=== PATIENT | female | born 1990 | race Asian ===

== ENCOUNTER 2019-01-14 20:05 | Emergency (ER) | payer MEDICAID, OTHER ==
[~2019-01-14] VITALS: Ht 167.6 cm; Wt 58.5 kg
[2019-01-14 20:27] VITALS: BP 135/79
[2019-01-14 21:11] LABS: Urine Bacteria FEW /hpf (None Seen); Urine Blood 2+ /uL (Negative); Urine Mucus FEW (None Seen); Urine Specific Gravity 1.016 (1.001-1.035); Urine WBC 9 /hpf (0 - 5)
[2019-01-14 21:35] LABS: Basophils # (auto) 0 uL; Basophils % (auto) 0.3 % (0.0-2.0); Eosinophils # (auto) 0.2 uL; Eosinophils % (auto) 1.3 % (0.0-7.0); Hemoglobin 13.9 g/dL (12.2-16.2); Lymphocytes # (auto) 4.2 uL; Lymphocytes % (auto) 32.2 % (10.0-50.0); Mean Corpuscular Hemoglobin 29.9 pg (28.0-32.0); Mean Corpuscular Volume 87.8 fL (80.0-100.0); Monocytes % (auto) 7.3 % (0.0-12.0); Neutrophils # (auto) 7.6 uL; Neutrophils % (auto) 58.9 % (37.0-80.0); Platelet Count (auto) 293 10^3/uL (140-450); Red Blood Cells 4.67 10^6/uL (4.0-5.20); Red Cell Distribution Width 12.9 % (11.8-14.3)
[2019-01-14 22:43] LABS: INR 0.89 (0.9-1.15); Partial Thromboplastin Time 28.3 sec (23.78-33.04); Prothrombin Time 9.6 sec (9.27-12.13)
== END 2019-01-15 02:51 | disposition left against medical advice (07) ==
LOC: ER 20:09
DX: O20.9 Hemorrhage in early pregnancy, unspecified (principal); Z3A.11 11 weeks gestation of pregnancy; Z53.21 Procedure and treatment not carried out due to patient leaving prior to being seen by health care provider
CPT/HCPCS: 36415; 76801; 81001; 84702; 85025; 85610; 85730

== ENCOUNTER 2019-05-24 20:05 | Emergency (ER) | payer MEDICAID ==
[~2019-05-24] VITALS: Ht 167.6 cm; Wt 64.9 kg
[2019-05-24 20:27] VITALS: BP 125/81
== END 2019-05-25 01:03 | disposition home or self-care (01) ==
LOC: ER 20:10
DX: O99.612 Diseases of the digestive system complicating pregnancy, second trimester (principal); K59.00 Constipation, unspecified; Z3A.28 28 weeks gestation of pregnancy

== ENCOUNTER → 2019-05-24 | Emergency (ER) | payer MEDICAID | END | disposition left against medical advice (07) | LOC: ER 20:07 | DX: K59.00 Constipation, unspecified (principal); Z53.21 Procedure and treatment not carried out due to patient leaving prior to being seen by health care provider ==

== ENCOUNTER 2019-08-08 09:57 | Observation (INO) | payer SELFPAY ==
[2019-08-08] MEDS ORDERED: PREN-96 PO (12:48)
== END 2019-08-08 13:25 | disposition home or self-care (01) | DRG 833 ==
LOC: LDRP 09:57
PROVIDERS: ADMIT Specialist; ATTEND Specialist
DX: O48.0 Post-term pregnancy (principal); Z3A.40 40 weeks gestation of pregnancy
CPT/HCPCS: 59025; 76818; 81002; G0378

== ENCOUNTER 2019-08-10 08:41 | Observation (INO) | payer MEDICAID ==
[~2019-08-10 08:41] MED LIST: PREN-96 PO
== END 2019-08-10 09:45 | disposition home or self-care (01) | DRG 566 ==
LOC: LDRP 08:41
PROVIDERS: ADMIT Specialist; ATTEND Specialist
DX: O48.0 Post-term pregnancy (principal); Z3A.40 40 weeks gestation of pregnancy
CPT/HCPCS: 76818; G0378; 59025; 81002

== ENCOUNTER 2019-08-11 11:20 | Observation (INO) | payer MEDICAID | END 2019-08-11 12:47 | disposition home or self-care (01) | DRG 566 | LOC: LDRP 11:20 | PROVIDERS: ADMIT Obstetrics & Gynecology; ATTEND Obstetrics & Gynecology | DX: O46.93 Antepartum hemorrhage, unspecified, third trimester (principal); O26.893 Other specified pregnancy related conditions, third trimester; O48.0 Post-term pregnancy; R10.30 Lower abdominal pain, unspecified; Z3A.40 40 weeks gestation of pregnancy | CPT/HCPCS: 59025; 81002; G0378 ==

== ENCOUNTER 2019-08-11 23:25 | Inpatient (IN) | payer MEDICAID ==
[~2019-08-11] VITALS: Ht 167.6 cm; Wt 69.4 kg
[2019-08-12] MEDS ORDERED: LIDOCAINE 1% (LOCAL ANESTH.) PF 5ml SDV IJ ONE (01:30)
[2019-08-12] MEDS ORDERED: METHYLERGONOVINE MALEATE 0.2 MG/ML AMP IM PRN (01:30)
[2019-08-12] MEDS: LACTATED RINGER'S 1,000 ML IV SCH ×3 (01:47→13:23)
[2019-08-12] MEDS: BUTORPHANOL TARTRATE 2 MG/1 ML VIAL IV PRN ×2 (01:51→15:02)
[2019-08-12 01:59] LABS: Basophils # (auto) 0.1 uL; Basophils % (auto) 0.4 % (0.0-2.0); Eosinophils # (auto) 0 uL; Hematocrit 41.9 % (36.0-46.0); Hemoglobin 14.3 g/dL (12.2-16.2); Lymphocytes # (auto) 1.6 uL; Lymphocytes % (auto) 10.1 % (10.0-50.0); Mean Corpuscular Hgb Conc. 34.3 g/dL (32.0-36.0); Mean Corpuscular Volume 90.4 fL (80.0-100.0); Monocytes # (auto) 0.4 uL; Monocytes % (auto) 2.6 % (0.0-12.0); Neutrophils # (auto) 13.4 uL; Neutrophils % (auto) 86.9 % (37.0-80.0); Nucleated Red Blood Cells % 0.1 %; Platelet Count (auto) 286 10^3/uL (140-450); Red Blood Cells 4.63 10^6/uL (4.0-5.20); Red Cell Distribution Width 12.3 % (11.8-14.3); White Blood Cell 15.5 10^3/uL (4.4-10.8)
[2019-08-12 02:15] LABS: INR < 0.93 (0.9-1.15); Partial Thromboplastin Time 28.6 sec (23.64-32.05)
[2019-08-12 02:17] LABS: Albumin 2.8 g/dL (3.4-5.0); BUN/Creatinine Ratio 9.3; Calcium 8.8 mg/dL (8.5-10.1); Potassium 3.5 mmol/L (3.5-5.1)
[2019-08-12 02:18] LABS: Alcohol, Urine < 3.0 mg/dL (0-5); Amphetamine Screen, Urine NEGATIVE (NEGATIVE); Barbiturate Scree,Urine NEGATIVE (NEGATIVE); Benzodiazephine Screen, Urine NEGATIVE (NEGATIVE); Cannabinoid Screen, Urine NEGATIVE (NEGATIVE); Cocaine Screen, Urine NEGATIVE (NEGATIVE); Opiate Scree,Urine NEGATIVE (NEGATIVE); Phencyclidine Screen, Urine NEGATIVE (NEGATIVE)
[2019-08-12] MEDS ORDERED: LACT. RINGERS/OXYTOCIN 20UNITS 1,000 ML IV SCH (02:18)
[2019-08-12 02:19] LABS: Bilirubin, Total 0.4 mg/dL (0.2-1.0); Total Protein 7.7 g/dL (6.4-8.2); Urine Bacteria FEW /hpf (None Seen); Urine Blood 3+ /uL (Negative); Urine Mucus FEW (None Seen); Urine Specific Gravity 1.017 (1.001-1.035); Urine WBC 13 /hpf (0 - 5)
[2019-08-12] MEDS ORDERED: LACTATED RINGER'S 1,000 ML IV ONE (02:56)
[2019-08-12] MEDS ORDERED: LACTATED RINGER'S 500 ML IV ONE (02:56)
[2019-08-12] MEDS ORDERED: ePHEDrine SULFATE 50 MG/ML AMP IV ONE (03:00)
[2019-08-12] MEDS ORDERED: LIDOCAINE 2%HCL (LOCAL ANESTH.) INJ 20ML MDV IJ ONE (03:00)
[2019-08-12] MEDS ORDERED: fentaNYL CITRATE 100 MCG/2 ML VL IV ONE (03:00)
[2019-08-12] MEDS ORDERED: LIDOCAINE HCL 2 %PF INJ 10ML AMP IJ ONE (03:00)
[2019-08-12] MEDS ORDERED: NALOXONE HCL 0.4 MG/ML VIAL IV ONE (03:00)
[2019-08-12] MEDS ORDERED: LIDOCAINE W/ EPINEPHRINE 1 % INJ 30ML IJ ONE (03:00)
[2019-08-12] MEDS ORDERED: fentaNYL W ROPIVACAINE 150 ML EPI SCH (03:00)
[2019-08-12] MEDS ORDERED: TERBUTALINE SULFATE 1 MG/ML 1ML VIAL SC ONE ×2 (08:25→08:48)
[2019-08-12] MEDS ORDERED: TERBUTALINE SULFATE 1 MG/ML 1ML VIAL SC PRN (09:00)
[2019-08-12] MEDS ORDERED: LIDOCAINE 2%HCL (LOCAL ANESTH.) INJ 20ML MDV ONE (14:05)
[2019-08-12] MEDS ORDERED: LIDOCAINE 2%HCL (LOCAL ANESTH.) INJ 10ml MDV IJ ONE ×2 (14:15)
[2019-08-12] MEDS ORDERED: CARBOPROST TROMETHAMINE 250 MCG/1ML VIAL IM ONE ×2 (15:30→15:31)
[2019-08-12] MEDS ORDERED: DIPHENOXYLATE W/ATROPINE 2.5 MG TAB PO PRN (15:45)
[2019-08-12] MEDS: ceFAZolin 1GM/50ML 50 ML IV SCH ×2 (16:09→23:45)
[2019-08-12] MEDS: ONDANSETRON HCL 4 MG/2 ML VIAL IV PRN (16:36)
[2019-08-12 17:17] VITALS: BP 128/82
[2019-08-12] MEDS: PHISODERM TOP SOLN 240ML BTL TOP PRN (17:22)
[2019-08-12] MEDS: WITCH HAZEL-GLYCERIN PAD TOP PRN (17:22)
[2019-08-12] MEDS: DERMOPLAST 60ML BOTTLE TOP PRN (17:22)
[2019-08-12 19:00] VITALS: BP 123/67
--- NOTE | 2019-08-12 19:00 | NUR ---
Assumed care of female pt post vaginal delivery at 1448. Pt is awake and alert, States she is having a lot of pain. Pt understands when spoken to but her lithuanian is very limited. Lungs are clear bilat. heart tones wnl abd is soft b/s present fundus is firm just below the umb. lochia is small no clots noted, edema to the perineum noted. No edema to lower extremities noted. Oliver catheter in placed emptied 550 ml's of dark yellow urine noted. IV to left hand noted site is benign IV fluids infusing as ordered. 191 Pt medicated with Motrin PO as ordered. 1920 Sequential stockings placed and explained to pt the benefits of placement, explanation via sister who translated. Pt verbalizes understanding via sister's translation
[2019-08-12] MEDS: IBUPROFEN 600 MG TAB PO PRN (19:15)
--- NOTE | 2019-08-12 20:00 | NUR ---
Assisted pt with putting to breast infant sleeping encouraged mom to try again in an hour infant remains skin to skin with mom call escamilla within reach instructed mom to notify staff if exp any problems or has any concerns via sister who translated. Translation phone in place and pt was asked how her pain was at this time via translation phone, pt responded that her pain was going away and she felt better. No distress noted will continue to monitor
[2019-08-12 23:00] VITALS: BP 104/68
--- NOTE | 2019-08-12 23:00 | NUR ---
Fundus remains firm below the umb. allison care given pagan collection bag emptied, V/S obtained and stable no distress noted will continue to monitor
[2019-08-13 03:00] VITALS: BP 115/65
--- NOTE | 2019-08-13 03:00 | NUR ---
Fundus remains firm below the um. lochia is small no clots noted, edema to labia noted. Chantel care given pagan collection bag emptied 750 of yellow urine. Ice pack placed to perineum will continue to monitor
--- NOTE | 2019-08-13 04:50 | NUR ---
Call received form Dr. Odonnell, update on pt's status given Per Dr. Odonnell pagan catheter may be discontinued by Day shift and if needed may place a 5 pound sand bag to the perineum
--- NOTE | 2019-08-13 05:30 | NUR ---
Infant safety and expected care reviewed and discussed via interpretation phone ( [facility]: [phone]). Pt verbalizes understanding and agrees to take care of infant. All questions and concerns answered at this time.
[2019-08-13 06:30] VITALS: BP 117/70
[2019-08-13] MEDS ORDERED: ceFAZolin 1GM/50ML 50 ML IV SCH (08:00)
--- NOTE | 2019-08-13 08:45 | NUR ---
Teaching: positioning and latch techniques reviewed with patient; Infant latched with nipple shield, infant actively sucking and swallowing, observed by this RN. Reviewed information in [facility] booklet with patient. Discussed benefits of and risks associated with not . Discussed different positions, proper latch, feeding cues, and baby-led . Provided information of medication side effects related to . All questions and concerns addressed at this time.
--- NOTE | 2019-08-13 09:00 | NUR ---
Pagan catheter dc'd Order to discontinue pagan catheter. Pagan dc'd with clean technique following deflation of balloon. Patient tolerated well with no complaints of pain. Pericare done. Clean peripad, tucks, dermoplast and ice pack applied to perineum.
[2019-08-13] MEDS: IBUPROFEN 600 MG TAB PO PRN ×2 (09:22→22:37)
--- NOTE | 2019-08-13 10:30 | NUR ---
Ambulation: Patient OOB with standby assistance by RN. Patient ambulated to bathroom with steady gait. Patient able to void 600ml without difficulty. Pericare teaching provided with returned demonstration by patient. Clean gown provided and bed linen changed. Patient ambulated back to bed with steady gait and no distress noted.
[2019-08-13 10:48] VITALS: BP 104/55
[2019-08-13 15:30] VITALS: BP 110/60
[2019-08-13 19:00] VITALS: BP 104/65
[2019-08-13 22:50] VITALS: BP 121/66
[2019-08-14 03:10] VITALS: BP 104/65
[2019-08-14 05:06] LABS: RPR Non Reactive (Non Reactive)
[2019-08-14 06:52] VITALS: BP 102/70
[2019-08-14] MEDS: ONDANSETRON HCL 4 MG/2 ML VIAL IV PRN (08:14)
[2019-08-14] MEDS: WITCH HAZEL-GLYCERIN PAD TOP PRN (10:24)
[2019-08-14] MEDS: PHISODERM TOP SOLN 240ML BTL TOP PRN (10:24)
[2019-08-14] MEDS: DERMOPLAST 60ML BOTTLE TOP PRN (10:24)
--- NOTE | 2019-08-14 10:52 | NUR ---
Discharge: Discharge instructions given as ordered. Pt encouraged to follow up with CERTIFIED MORTICIAN as instructed. All questions and concerns addressed. Patient verbalized understanding. Medication reconciliation completed and copy given to patient. Patient encouraged to prepare to depart unit.
[2019-08-14 11:00] VITALS: BP 129/70
--- NOTE | 2019-08-14 12:13 | NUR ---
IV removal IV DC'd with clean sterile technique, catheter fully intact. Pressure dressing applied to site. Patient tolerated well. NOTE:
--- NOTE | 2019-08-14 13:28 | NUR ---
CALLED IN COLACE PRESCRIPTION 100MG PO BID #20 TO [facility] AT [address] [facility] [address] [phone]. PT NOTIFIED TO PROMPT CARE RN PRESCRIPTION ONCE DISCHARGED.
--- NOTE | 2019-08-14 13:55 | NUR ---
DISCHARGE ALL DISCHARGE INSTRUCTIONS AND ALL PAPERWORK GIVEN TO PATIENT IN HER PREFERRED LANGUAGE VIA BLUE PHONE SURGICAL ATTENDANT. SURGICAL ATTENDANT DEXTER, ID NUMBER [id number]. ALL QUESTIONS AND CONCERNS ADDRESSED AT THIS TIME. PT PREPARING FOR DISCHARGE.
--- NOTE | 2019-08-14 14:03 | NUR ---
PT REQUESTING MEDICATION TO BE CALLED INTO [facility] [id number] [address] [phone]. CALLED [facility] AND SPOKE WITH PHARMACIST MARCH. CALLED IN COLACE 100MG PO BID, #20. PT NOTIFIED AND AGREES TO FOOD MIXER ASSEMBLER MEDICATION.
--- NOTE | 2019-08-14 14:10 | NUR ---
Discharge: Patient taken to vehicle ambulatory via steady gait, pt declined via wheelchair with all personal belongings, accompanied by staff and family members. No distress noted at time of departure, no adverse changes in status since initial assessment.
== END 2019-08-14 14:10 | disposition home or self-care (01) | DRG 560 ==
LOC: LDRP 23:25 → OBSVTOIN 08-12 01:15 → LDRP 08-12 03:29
PROVIDERS: ADMIT Obstetrics & Gynecology; ATTEND Obstetrics & Gynecology
PROC: 10D07Z6 Extraction of Products of Conception, Vacuum, Via Natural or Artificial Opening (ICD-10-PCS; principal; 2019-08-12)
PROC: 3E0R3BZ Introduction of Anesthetic Agent into Spinal Canal, Percutaneous Approach (ICD-10-PCS; 2019-08-12)
PROC: 00HU33Z Insertion of Infusion Device into Spinal Canal, Percutaneous Approach (ICD-10-PCS; 2019-08-12)
PROC: 0KQM0ZZ Repair Perineum Muscle, Open Approach (ICD-10-PCS; 2019-08-12)
DX: O48.0 Post-term pregnancy (principal); E05.90 Thyrotoxicosis, unspecified without thyrotoxic crisis or storm; O99.284 Endocrine, nutritional and metabolic diseases complicating childbirth; Z37.0 Single live birth; O70.1 Second degree perineal laceration during delivery; Z3A.41 41 weeks gestation of pregnancy
CPT/HCPCS: 36415; 51702; 59025; 59409; 62282; 80053; 80307; 81001; 81002; 84112; 85025; 85610; 85730; 86592; 86850; 86870; 86900; 86901; 94760; 96361; 96365; 96366; 96375; G0378; J0690; J2001; J2405; J2590; J3010

== ENCOUNTER 2021-10-17 06:57 | Emergency (ER) | payer MEDICAID ==
[~2021-10-17] VITALS: Ht 162.6 cm; Wt 59.0 kg
[2021-10-17 07:42] LABS: Basophils # (auto) 0 10 ^3/uL (0-0.2); Basophils % (auto) 0.5 % (0.0-2.0); Eosinophils # (auto) 0.1 10 ^3/uL (0-0.8); Eosinophils % (auto) 1.4 % (0.0-7.0); Hematocrit 39.7 % (36.0-46.0); Hemoglobin 13.4 g/dL (12.2-16.2); Lymphocytes # (auto) 2.8 10 ^3/uL (0.4-5.4); Lymphocytes % (auto) 48.8 % (10.0-50.0); Mean Corpuscular Hemoglobin 28.7 pg (28.0-32.0); Mean Corpuscular Hgb Conc. 33.9 g/dL (32.0-36.0); Mean Corpuscular Volume 84.8 fL (80.0-100.0); Monocytes # (auto) 0.7 10 ^3/uL (0-1.3); Monocytes % (auto) 12.3 % (0.0-12.0); Neutrophils # (auto) 2.1 10 ^3/uL (1.6-8.6); Nucleated Red Blood Cells % 0.1 %; Red Blood Cells 4.68 10^6/uL (4.0-5.20); Red Cell Distribution Width 13.4 % (11.8-14.3); White Blood Cell 5.7 10^3/uL (4.4-10.8)
[2021-10-17 07:57] LABS: Potassium 3.6 mmol/L (3.5-5.1)
[2021-10-17 08:00] LABS: BUN/Creatinine Ratio 11.4; Bilirubin, Total 0.4 mg/dL (0.2-1.0); Total Protein 8.7 g/dL (6.4-8.2)
[2021-10-17 09:07] LABS: Urine Bacteria FEW /hpf (None Seen); Urine Blood 1+ /uL (Negative); Urine Specific Gravity 1.003 (1.001-1.035); Urine WBC 6 /hpf (0 - 5)
[2021-10-17 12:05] VITALS: BP 137/91
== END 2021-10-17 12:22 | disposition home or self-care (01) ==
LOC: ER 06:57
DX: K59.00 Constipation, unspecified (principal); K80.80 Other cholelithiasis without obstruction; Z79.899 Other long term (current) drug therapy
CPT/HCPCS: 36415; 74176; 80053; 81001; 85025

== ENCOUNTER 2022-10-14 11:31 | Emergency (ER) | payer MEDICAID ==
[~2022-10-14] VITALS: Ht 167.6 cm; Wt 56.0 kg
[2022-10-14] MEDS ORDERED: PANTOPRAZOLE 40 MG TAB PO ONE (11:45)
[2022-10-14 12:06] LABS: Basophils # (auto) 0.1 10 ^3/uL (0-0.2); Basophils % (auto) 0.7 % (0.0-2.0); Eosinophils # (auto) 0.1 10 ^3/uL (0-0.8); Hematocrit 38.9 % (36.0-46.0); Hemoglobin 13.1 g/dL (12.2-16.2); Lymphocytes # (auto) 3.6 10 ^3/uL (0.4-5.4); Lymphocytes % (auto) 45.4 % (10.0-50.0); Mean Corpuscular Hemoglobin 29.8 pg (28.0-32.0); Mean Corpuscular Hgb Conc. 33.7 g/dL (32.0-36.0); Mean Corpuscular Volume 88.5 fL (80.0-100.0); Monocytes # (auto) 0.6 10 ^3/uL (0-1.3); Monocytes % (auto) 7.6 % (0.0-12.0); Neutrophils # (auto) 3.6 10 ^3/uL (1.6-8.6); Neutrophils % (auto) 45.3 % (37.0-80.0); Nucleated Red Blood Cells % 0.1 %; Red Blood Cells 4.39 10^6/uL (4.0-5.20); Red Cell Distribution Width 12.7 % (11.8-14.3)
[2022-10-14 12:24] LABS: Calcium 9.5 mg/dL (8.5-10.1); Magnesium 2.2 mg/dL (1.6-2.6); Potassium 3.6 mmol/L (3.5-5.1)
[2022-10-14 12:33] LABS: BUN/Creatinine Ratio 15.3; Bilirubin, Total 0.4 mg/dL (0.2-1.0); Total Protein 7.9 g/dL (6.4-8.2)
[2022-10-14 12:45] LABS: Urine Bacteria FEW /hpf (None Seen); Urine Blood Negative /uL (Negative); Urine Specific Gravity 1.006 (1.001-1.035); Urine WBC 28 /hpf (0 - 5)
[2022-10-14] MEDS ORDERED: SIME1CAP12 PO (14:44)
[2022-10-14] MEDS ORDERED: MET500T PO (14:44)
[2022-10-14] MEDS ORDERED: FAMO20TA58 (14:44)
[2022-10-14] MEDS ORDERED: DOCU100C10 PO (14:44)
[2022-10-14] MEDS ORDERED: CIPR500T4 PO (14:44)
[2022-10-14] MEDS ORDERED: cefTRIAXone 1GM/50ML D5W 50 ML IV ONE (14:45)
[2022-10-14] MEDS ORDERED: TRAM-297 PO (15:05)
[2022-10-14] MEDS ORDERED: PANT40TA2 PO (15:05)
[2022-10-14] MEDS ORDERED: CIPR-173 PO (15:05)
[2022-10-14 15:45] VITALS: BP 104/69
[2022-10-15] MEDS ORDERED: cefTRIAXone 1GM/50ML D5W 50 ML IV SCH (09:00)
[2022-10-15] MEDS ORDERED: PANTOPRAZOLE 40 MG TAB PO SCH (10:00)
== END 2022-10-14 15:49 | disposition home or self-care (01) ==
LOC: ER 11:31
DX: K80.20 Calculus of gallbladder without cholecystitis without obstruction (principal)
CPT/HCPCS: 36415; 76705; 80053; 81001; 83735; 84484; 85025; 85379; 87086; 93005